=== PATIENT | female | born 1965 | race African-American/Black ===

== ENCOUNTER 2017-03-09 08:00 | Outpatient (CLI) | payer BC | END 2017-03-09 08:01 | disposition home or self-care (01) | LOC: BICMAMMO 08:00 | PROVIDERS: ATTEND Obstetrics & Gynecology | DX: Z12.31 Encounter for screening mammogram for malignant neoplasm of breast (principal) | CPT/HCPCS: 77063; 77067; G0202 ==

== ENCOUNTER 2017-05-04 16:30 | Inpatient (IN) | payer BC ==
[2017-05-04 16:23] VITALS: BMI 26.8
--- NOTE | 2017-05-04 22:46 | HP ---
HISTORY OF PRESENT ILLNESS: Ms. Connolly is a 52-year-old -[place] female, who has been havin g increasing symptoms in regards to uterine fibroids. She has been experiencing prolonged menstrual bleeding and pelvic cramping and pain over the past several months. Due to the complaint, she was ev aluated in my office and on 02/28/2017, she had a pelvic ultrasound. The uterus measured 10.9 x 5.8 cm with a fundal fibroid 2.5 x 2.3 cm and a posterior fibroid that was encroaching upon the endometri al cavity measuring 3.3 x 2.5 cm. Endometrial thickness was 5.2 mm with normal bilateral ovaries. N o abnormal fluid collections were seen. Due to the findings and the pelvic discomfort and cramping p ain she has been experiencing along with the irregular bleeding, she has elected to proceed with defi nitive surgical therapy. PAST MEDICAL HISTORY: Benign essential hypertension. Prior ulcerative colitis, but is in remission and is followed by Dr. Ba Govea. She has also had a previous LEEP procedure and D and C. CURRENT MEDICATIONS: Byed-xxh-gaewrzc Naprosyn/Aleve as needed. ALLERGIES: She has no known drug allergies. 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 No alcohol use. No smoking. FAMILY HISTORY: Unknown due to being adopted. PHYSICAL EXAMINATION: VITAL SIGNS: Her blood pressure is 128/86, pulse 89, respirations 18, height 66 inches, weight 166 p ounds, BMI 26.8. HEENT: Exam is within normal limits. CHEST: Clear to auscultation. HEART: Regular rate and rhythm. S1 and S2 heart sounds. ABDOMEN: Soft, nontender, and nondistended with no palpable masses. PELVIC: Vulva and vagina have no lesions. Cervix had no lesions. Pap smear obtained 2016 was negat anirudh along with negative HPV screening. Uterus is 10 weeks' size, mildly tender. Adnexa were nontend er with no masses. ASSESSMENT: A 52-year-old -[place] female with 10-week size uterine fibroids. PLAN: Proceed with robotic total laparoscopic hysterectomy and bilateral salpingo-oophorectomy. Ris ks and benefits of procedure discussed in detail and set for surgery on 05/09/2017.
[2017-05-09] MEDS ORDERED: Lidocaine 2% w/Epinephrine 1:200K 20 ML VIAL ONE (06:56)
[2017-05-09] MEDS ORDERED: Bupivacaine 0.25% HCL 30 ML VIAL ONE (06:56)
[2017-05-09] MEDS ORDERED: Fentanyl 100 MCG/2 ML VIAL ONE ×3 (07:10→10:07)
[2017-05-09] MEDS ORDERED: Midazolam HCl 2 mg/2 ml Vial ONE (07:17)
[2017-05-09] MEDS ORDERED: CEFAZOLIN/Water 2 GM/20 ML SYRINGE ONE (07:17)
[2017-05-09] MEDS ORDERED: Promethazine HCl 25 MG/ML VIAL IM PRN ×2 (08:56→10:44)
[2017-05-09] MEDS ORDERED: Ondansetron HCl/PF 4 MG/2 ML Vial IVP PRN ×2 (08:56→10:44)
[2017-05-09] MEDS ORDERED: Promethazine HCl 25 MG/ML VIAL SLOW IVP PRN (08:56)
[2017-05-09] MEDS ORDERED: Estradiol 0.1mg/24 Hour Patch (Weekly) TD ONE (09:37)
[2017-05-09] MEDS ORDERED: Ketorolac Tromethamine 30 MG/ML VIAL ONE (09:57)
--- NOTE | 2017-05-09 10:41 | OP ---
DATE OF PROCEDURE: 05/09/2017 PREOPERATIVE DIAGNOSES: 1. A 52-year-old -[place] female with symptomatic 12-week uterine fibroids with dysmenorrhea , menorrhagia and pelvic pain. 2. Desires definitive surgical therapy. PROCEDURE PERFORMED: Robotic TLH BSO. SURGEON: Cheryl Mandujano M.D. TRAINING AND DEVELOPMENT MANAGER SURGEON: Makayla Henry D.O. ANESTHESIA: General endotracheal. ESTIMATED BLOOD LOSS: 50 mL. COMPLICATIONS: None. COUNTS: Correct x2. ANTIBIOTICS: Two grams Ancef classification counselor to the OR. FINDINGS: 1. Normal appearing fallopian tubes and ovaries. 2. Enlarged uterus 12 weeks size with noted intramural fibroids. 3. Normal appearing appendix, liver edge and gallbladder. 4. Bladder was watertight over 300 mL fluid distention post-procedure along with visualization of bi lateral ureteral peristalsis post-procedure. DISPOSITION: To the recovery room stable. DESCRIPTION OF OPERATIVE PROCEDURE: The patient previously received informed consent in regards to erin rodriguez. She was taken back to the operating room where she received a general endotracheal anestheti c agent without complications. She was placed in the dorsal lithotomy position with use of Renny sti rrups and prepped and draped in usual sterile fashion. Franks catheter was placed during the prep pro cess and then side arm speculum was introduced in the vagina and the anterior lip of cervix grasped w ith single tooth tenaculum. Uterus sounded to 9 cm. A size 8 cm SHORTY uterine manipulator with 4.06 cm cervical cup was then placed in the usual fashion. Tenaculum and speculum were removed. Attentio n was then turned to the abdomen where perspective trocar sites were infiltrated with 0.5% Marcaine w ith epinephrine. A 12 mm infraumbilical incision was made and Veress needle was entered into the per itoneal cavity. Patient pressure was noted to be less than 5 mm and the abdomen was insufflated to a patient pressure of 15, approximately 4-1/2 liters carbon dioxide gas. Veress needle was then remov ed. A size 12 mm trocar was then placed in the infraumbilical incision and the robotic laparoscope w as introduced through the trocar sleeve confirming proper entry. The patient was placed in more [place] position and additional bilateral lower quadrant 8 mm robotic trocars were placed under lap aroscopic guidance along with the right upper quadrant 11 mm preschool assistant director port. The robot was then dock ed in usual fashion and then I proceeded to carry out the surgical case from the surgical console and my assistants remained at the bedside. The uterus was elevated previously mentioned findings were n oted. The left infundibulopelvic ligament was isolated. The fimbria of the fallopian tube was grasp ed by my preschool assistant director and the bipolar fenestrated device was used to coagulate and transect the IP ligam ent on the left side. Serial coagulation of the broad ligament hugging close uterine specimen was ca rried out. Coagulation and transection with monopolar scissors into the left round ligament was reac hed. It was coagulated and transected and the anterior leaf of broad ligament was entered developing the vesicouterine peritoneum and dissecting the bladder atraumatically past the cervical vaginal jami ction in a layering technique. The left uterine vessels were also skeletonized anteriorly and aviation safety officer iorly in a layering technique and they were coagulated internal cervical os region. This was carried out in likewise fashion on the patient's right side. Again, the right IP ligament w as coagulated and transected. Serial coagulation of the broad ligament, hugging close uterine specim en was carried out again coagulation and transecting until the right round ligament was reached. It was coagulated and transected and the anterior leaf of the broad ligament was entered again dissectin g the vesicouterine peritoneum and completing the dissection the bladder off of the uterus and lower uterine segment past the cervical vaginal angle. Uterine vessels again on the right side were skelet onized anteriorly and posteriorly and coagulated internal cervical os. The anterior colpotomy was th en created starting from 12 to 3 and 12 and 9 o'clock in the usual fashion and the remainder of the v essels at the 3 and 9 o'clock position, the uterine vessels were coagulated during this time inside t he cervical cup align. The posterior colpotomy was then completed from 6 to 3 and 6 to 9 in likewise fashion and the uterine specimen was delivered into the vaginal vault. Monopolar scissors was switc hed to a Aris needle front end driver and a Stratafix suture was passed by my preschool assistant director to the preschool assistant director port. The vaginal cuff was then closed in full thickness closure starting the right angle back to the left angle and then back to the midline securing hemostasis. Thus suture and needle were removed. The p jeanie again was irrigated and suctioned. All the pedicle sites were noted to be hemostatic. The kal dder was distended over 300 mL with saline and no evidence of leak was noted. Bilateral ureteral per istalsis was visualized. The robot was then undocked and the trocar sleeves were removed. The umbil ical incision was closed with a deep stitch pursestring of 0 Vicryl suture. The remainder of the tro car sites was closed with 4-0 Monocryl subcuticular with Dermabond. The surgery was terminated and n o anesthetic or surgical complications.
[2017-05-09] MEDS ORDERED: Simethicone Chewable 80 MG TAB PO PRN (10:44)
[2017-05-09] MEDS ORDERED: Estradiol 0.1mg/24 Hour Patch (Weekly) TD SCH (10:44)
[2017-05-09] MEDS ORDERED: traMADol HCl 50 MG TAB PO PRN (10:44)
[2017-05-09] MEDS ORDERED: Morphine 4 MG/ML Carpuject SLOW IVP PRN (10:44)
[2017-05-09] MEDS ORDERED: diphenhydrAMINE 25 MG CAP PO PRN (10:44)
[2017-05-09] MEDS ORDERED: Bisacodyl 10 MG SUPP PR PRN (10:44)
[2017-05-09] MEDS ORDERED: Morphine 5 MG/ML SYRINGE SLOW IVP PRN (10:48)
[2017-05-09] MEDS ORDERED: Naproxen 500 MG TAB PO PRN (12:16)
[2017-05-09] MEDS: Acetaminophen 1,000 MG in Premix Bag 1 BAG IVPB SCH ×2 (14:32→18:12)
[2017-05-09] MEDS: Ketorolac Tromethamine 30 MG/ML VIAL IVP SCH ×2 (14:32→17:06)
[2017-05-09] MEDS: Lactated Ringer's 1,000 ML IV SCH (17:02)
[2017-05-09] MEDS: traMADol HCl 50 MG TAB PO PRN (20:22)
[2017-05-09] MEDS: Ibuprofen 800 MG TAB PO SCH (21:00)
[2017-05-10] MEDS: Ketorolac Tromethamine 30 MG/ML VIAL IVP SCH ×3 (00:38→12:15)
[2017-05-10] MEDS: Acetaminophen 1,000 MG in Premix Bag 1 BAG IVPB SCH ×3 (00:39→12:11)
[2017-05-10] MEDS: Lactated Ringer's 1,000 ML IV SCH ×2 (02:01→08:01)
[2017-05-10 05:44] LABS: Hemoglobin 10.7 g/dL (12.0-16.0); Mean Corpuscular HGB CONC 30.2 g/dL (32.0-36.0); Mean Corpuscular Hemoglobin 23.5 pg (27.0-31.0); Mean Corpuscular Volume 77.8 fl (81.0-99.0); Mean Platelet Volume 8.5 fL (7.4-10.4); Platelet Count 328 thou/uL (130-400); RBC Distribution Width 16.5 % (11.5-14.5); Red Blood Cell (RBC) Count 4.57 mill/uL (4.20-5.40)
[2017-05-10] MEDS: Ibuprofen 800 MG TAB PO SCH ×2 (08:01→11:34)
[2017-05-10] MEDS: traMADol HCl 50 MG TAB PO PRN (08:16)
--- NOTE | 2017-05-10 08:32 | PDOC.EVN ---
Event Note - Event Note Event Note: S:Adequate pain control. Has passed flatus. No nausea. Tolerating diet. O:AFVSS 98.4 P76 R20 118/71 HCT 35.5% ABD: soft non distended. trochar sites intact/clean/dry. A/P:post opd ay #1-robotic tlh/bso. Doing well.D/c home today if continues to progress well. Tramadol for pain. climara patch 01mg/weekly for hrt. Has f/u 2 and 6 weeks.
[2017-05-10 11:37] VITALS: BP 143/72; TEMP 98.8
== END 2017-05-10 15:15 | disposition home or self-care (01) | DRG 743 ==
LOC: SURG A 05-09 05:55 → 3SE 05-09 10:28
PROVIDERS: ADMIT Obstetrics & Gynecology; ATTEND Obstetrics & Gynecology
PROC: 0UT94ZZ Resection of Uterus, Percutaneous Endoscopic Approach (ICD-10-PCS; principal; 2017-05-09)
PROC: 0UT74ZZ Resection of Bilateral Fallopian Tubes, Percutaneous Endoscopic Approach (ICD-10-PCS; 2017-05-09)
PROC: 0UT24ZZ Resection of Bilateral Ovaries, Percutaneous Endoscopic Approach (ICD-10-PCS; 2017-05-09)
PROC: 8E0W4CZ Robotic Assisted Procedure of Trunk Region, Percutaneous Endoscopic Approach (ICD-10-PCS; 2017-05-09)
DX: N93.9 Abnormal uterine and vaginal bleeding, unspecified (principal); D25.1 Intramural leiomyoma of uterus; I10 Essential (primary) hypertension
CPT/HCPCS: 36415; 85027; 88307; J0131; J1885; J2250; J3010; S0020

== ENCOUNTER 2017-05-05 16:19 | Outpatient (CLI) | payer BC ==
[2017-05-05 16:56] LABS: Hemoglobin 12.3 g/dL (12.0-16.0); Mean Corpuscular HGB CONC 32.4 g/dL (32.0-36.0); Mean Corpuscular Hemoglobin 24.9 pg (27.0-31.0); Mean Platelet Volume 9.2 fL (7.4-10.4); Platelet Count 341 thou/uL (130-400); RBC Distribution Width 16.3 % (11.5-14.5); Red Blood Cell (RBC) Count 4.96 mill/uL (4.20-5.40); White Blood Cell (WBC) Count 9.9 thou/uL (4.8-10.8)
[2017-05-05 17:19] LABS: Anion Gap 12 mmol/L (10-20); BUN (Urea Nitrogen) 14 mg/dL (7.0-18.7); Calc. Creatinine Clearance 0 mL/min (70-130); Calcium 9.4 mg/dL (7.8-10.44); Carbon Dioxide 29 mmol/L (22-29); Chloride 100 mmol/L (98-107); Estimated GFR-MDRD Greater than 90; Glucose 112 mg/dL (70-105); Potassium 3.4 mmol/L (3.5-5.1); Sodium 138 mmol/L (136-145)
[2017-05-05 18:07] LABS: BHCG - Serum Negative (NEGATIVE); Pregs Control Background? CLEAR/WHITE (CLR/WHITE); Pregs Control Bar Appear? YES (CONTROL BAR)
--- NOTE | 2017-05-06 13:20 | EKG ---
Test Reason : Blood Pressure : / mmHG Vent. Rate : 083 BPM Atrial Rate : 083 BPM P-R Int : 208 ms QRS Dur : 084 ms QT Int : 352 ms P-R-T Axes : 066 062 076 degrees QTc Int : 413 ms Normal sinus rhythm Normal ECG Confirmed by LAURY CASEY ([id number]) on 05/06/2017 1:20:11 PM Referred By: [place] Confirmed By:LAURY CASEY
== END 2017-05-05 16:20 | disposition home or self-care (01) ==
LOC: LABBT 16:19
PROVIDERS: ATTEND Obstetrics & Gynecology
DX: Z01.812 Encounter for preprocedural laboratory examination (principal); Z01.810 Encounter for preprocedural cardiovascular examination; D25.9 Leiomyoma of uterus, unspecified
CPT/HCPCS: 80048; 84703; 85027; 86850; 86900; 86901; 93005; 93010

== ENCOUNTER 2018-03-10 08:02 | Outpatient (CLI) | payer BC | END 2018-03-10 08:03 | disposition home or self-care (01) | LOC: BICMAMMO 08:02 | PROVIDERS: ATTEND Obstetrics & Gynecology | DX: Z12.31 Encounter for screening mammogram for malignant neoplasm of breast (principal); Z80.3 Family history of malignant neoplasm of breast | CPT/HCPCS: 77063; 77067 ==

== ENCOUNTER 2019-03-15 07:53 | Outpatient (CLI) | payer BC ==
--- NOTE | 2019-03-15 08:54 | MMO ---
Bilateral MAMMO Bilat Screen [facility]. CLINICAL HISTORY: Patient is 54 years old and is seen for screening. The patient has the following family history of breast cancer: maternal aunt. The patient has no personal history of cancer. VIEWS: The views performed were: bilateral craniocaudal with tomosynthesis and bilateral mediolateral oblique with tomosynthesis. FILMS COMPARED: The present examination has been compared to prior imaging studies performed at [facility] on 02/24/2015, 03/04/2016, 03/09/2017 and 03/10/2018. This study has been interpreted with the assistance of computer-aided detection. MAMMOGRAM FINDINGS: There are scattered fibroglandular densities. Finding 1: There are stable benign appearing calcifications seen in both breasts. Finding 2: There are stable intramammary lymph nodes seen in both breasts. There are no suspicious masses, suspicious calcifications, or new areas of architectural distortion. IMPRESSION: THERE IS NO MAMMOGRAPHIC EVIDENCE OF MALIGNANCY. A ROUTINE FOLLOW-UP MAMMOGRAM IN 1 YEAR IS RECOMMENDED. THE RESULTS OF THIS EXAM WERE SENT TO THE PATIENT. ACR BI-RADS Category 2 - Benign finding MAMMOGRAPHY NOTE: 1. A negative mammogram report should not delay a biopsy if a dominant of clinically suspicious mass is present. 2. Approximately 10% to 15% of breast cancers are not detected by mammography. 3. Adenosis and dense breasts may obscure an underlying neoplasm. Reported by: PHYLLIS HARRISON MD Electonically Signed: [id number]
== END 2019-03-15 07:54 | disposition home or self-care (01) ==
LOC: BICMAMMO 07:53
PROVIDERS: ATTEND Obstetrics & Gynecology
DX: Z12.31 Encounter for screening mammogram for malignant neoplasm of breast (principal); Z80.3 Family history of malignant neoplasm of breast
CPT/HCPCS: 77063; 77067

== ENCOUNTER 2020-08-26 12:24 | Outpatient (CLI) | payer BC | END 2020-08-26 12:25 | disposition home or self-care (01) | LOC: BICMAMMO 12:24 | PROVIDERS: ATTEND Obstetrics & Gynecology | DX: Z12.31 Encounter for screening mammogram for malignant neoplasm of breast (principal); Z80.3 Family history of malignant neoplasm of breast | CPT/HCPCS: 77063; 77067 ==

== ENCOUNTER 2021-08-27 08:10 | Outpatient (CLI) | payer BC | END 2021-08-27 08:11 | disposition home or self-care (01) | LOC: BICMAMMO 08:10 | PROVIDERS: ATTEND Obstetrics & Gynecology | DX: Z12.31 Encounter for screening mammogram for malignant neoplasm of breast (principal) | CPT/HCPCS: 77063; 77067 ==

== ENCOUNTER 2022-10-08 07:54 | Outpatient (CLI) | payer BC | END 2022-10-08 07:55 | disposition home or self-care (01) | LOC: BICMAMMO 07:54 | PROVIDERS: ATTEND Obstetrics & Gynecology | DX: Z12.31 Encounter for screening mammogram for malignant neoplasm of breast (principal); Z80.3 Family history of malignant neoplasm of breast | CPT/HCPCS: 77063; 77067 ==

== ENCOUNTER 2023-02-14 10:07 | Outpatient (CLI) | payer BC ==
[~2023-02-14 10:07] MED LIST: Iopamidol 370 76% 100 ML VIAL ONE
== END 2023-02-14 10:08 | disposition home or self-care (01) ==
LOC: CT 10:07
PROVIDERS: ATTEND Internal Medicine
DX: K51.50 Left sided colitis without complications (principal); K76.89 Other specified diseases of liver; Z90.710 Acquired absence of both cervix and uterus
CPT/HCPCS: 74177; Q9967

== ENCOUNTER 2023-10-10 09:32 | Outpatient (CLI) | payer BC | END 2023-10-10 09:33 | disposition home or self-care (01) | LOC: BICMAMMO 09:32 | PROVIDERS: ATTEND Obstetrics & Gynecology | DX: Z12.31 Encounter for screening mammogram for malignant neoplasm of breast (principal); Z80.3 Family history of malignant neoplasm of breast | CPT/HCPCS: 77063; 77067 ==

== ENCOUNTER 2024-10-10 07:58 | Outpatient (CLI) | payer BC | END 2024-10-10 07:59 | disposition home or self-care (01) | LOC: BICMAMMO 07:58 | PROVIDERS: ATTEND Obstetrics & Gynecology | DX: Z12.31 Encounter for screening mammogram for malignant neoplasm of breast (principal); Z80.3 Family history of malignant neoplasm of breast | CPT/HCPCS: 77063; 77067 ==